=== PATIENT | female | born 1965 | race Caucasian/White ===

== ENCOUNTER 2017-01-25 00:34 | Emergency (ER) | payer MEDICARE, BC | END 2017-01-25 05:24 | disposition home or self-care (01) | LOC: ER 00:34 | DX: R55 Syncope and collapse (principal); R07.89 Other chest pain; R51 Headache; R11.0 Nausea; R06.02 Shortness of breath; R00.2 Palpitations; E07.9 Disorder of thyroid, unspecified; Z79.82 Long term (current) use of aspirin; Z79.899 Other long term (current) drug therapy; Z88.0 Allergy status to penicillin; Z88.2 Allergy status to sulfonamides; Z88.8 Allergy status to other drugs, medicaments and biological substances | CPT/HCPCS: 36415; 96360; J2060; Q9967 ==